=== PATIENT | male | born 1985 | race African-American/Black ===

== ENCOUNTER → 2017-02-18 | Outpatient (CLI) | payer OTHER ==
--- NOTE | ~2017-02-18 | CR142 ---
[facility] A Service of [facility] & [facility] RADIOLOGY TEXT RESULTS PATIENT: CELESTE GONZALES LOCATION: [facility] : 85 UNIT #: [id number] AGE: [address]: BOBBY WHITE SEX: M ORDER DR: [id number] [place], [place] [address] [id number] O MR#: [id number] Acc #: [id number] NAME: CELESTE GONZALES : 1985 SEX: M STUDY DATE/TIME: 02/18/2017 15:29 UNIT: [facility] ROOM: STUDY DESCRIPTION: CR Hand Min 3 Views Rt Attending Physician: Bobby White Aprn Referring Physician: Bobby White Aprn Ordering Physician: Bobby White Aprn Primary Care Physician: Bobby White Aprn MEDICAL IMAGING REPORT This report is preliminary unless electronic signature is present EXAM Right hand series 02/18/2017 HISTORY 31-year-old male complaining of 2-week history of right hand pain and swelling after abrasion injury. Possible infection. TECHNIQUE Three-view right hand series. FINDINGS The examination shows soft tissue swelling throughout the hand, greatest in the region of the webspace between the fourth and fifth digits. No visible soft tissue gas or radiopaque soft tissue foreign body. No osseous abnormality. IMPRESSION 1. Soft tissue swelling of the right hand, greatest in the region of the webspace between the bases of the fourth and fifth digits. 2. The exam is otherwise negative. No osseous abnormality or visible radiopaque soft tissue foreign body or soft tissue gas. STAT * RESULT Dictated by... Stuart Blackman M.D. THIS IS AN ELECTRONICALLY VERIFIED REPORT Stuart Blackman M.D. at 02/19/2017 5:13 PM [email or web address] [facility] A Service of [facility] RADIOLOGY TEXT RESULTS PATIENT: CELESTE GONZALES LOCATION: [facility] #: [id number] : [birth year] UNIT #: [id number] AGE: [address]: BOBBY WHITE SEX: M ORDER DR: TD: 02/19/2017 09:35 JOB #: [id number] MEDICAL IMAGING REPORT Page 1 of 1 COPY
== END | disposition home or self-care (01) ==
LOC: CRAD 14:55
DX: M79.641 Pain in right hand (principal); M79.89 Other specified soft tissue disorders; Z18.33 Retained wood fragments
CPT/HCPCS: 73130